=== PATIENT | male | born 1940 | race Caucasian/White ===

== ENCOUNTER 2019-07-31 16:27 | Emergency (ER) | payer OTHER ==
[~2019-07-31] VITALS: Ht 177.8 cm; Wt 84.8 kg
[~2019-07-31 16:27] MED LIST: ASPIRIN ADULT L81 M1 PO; ATENOLOL25 PO
[2019-07-31 16:34] VITALS: BP 137/77; Ht 177.8 cm; Wt 84.8 kg
== END 2019-07-31 17:41 | disposition home or self-care (01) ==
LOC: ED 16:27
DX: R33.9 Retention of urine, unspecified (principal); R10.30 Lower abdominal pain, unspecified; I10 Essential (primary) hypertension

== ENCOUNTER 2019-08-09 03:00 | Emergency (ER) | payer OTHER ==
[~2019-08-09] VITALS: Ht 170.2 cm; Wt 87.1 kg
[2019-08-09 03:16] VITALS: Ht 170.2 cm; Wt 87.1 kg
[2019-08-09 07:39] VITALS: BP 122/67
== END 2019-08-09 07:39 | disposition home or self-care (01) ==
LOC: ED 03:00
DX: R33.9 Retention of urine, unspecified (principal); T83.018A Breakdown (mechanical) of other urinary catheter, initial encounter; I10 Essential (primary) hypertension; Y92.89 Other specified places as the place of occurrence of the external cause

== ENCOUNTER 2019-08-30 17:35 | Emergency (ER) | payer OTHER ==
[~2019-08-30] VITALS: Ht 167.6 cm; Wt 81.6 kg
[2019-08-30 17:47] VITALS: Ht 167.6 cm; Wt 81.6 kg
[2019-08-30 19:35] VITALS: BP 141/73
== END 2019-08-30 19:35 | disposition home or self-care (01) ==
LOC: ED 17:35
DX: R33.9 Retention of urine, unspecified (principal); I10 Essential (primary) hypertension